=== PATIENT | female | born 1965 | race Hispanic/Latino ===

== ENCOUNTER → 2024-11-18 | Outpatient (CLI) | payer BC ==
--- NOTE | 2024-11-18 10:02 | HMCIMG ---
DEXA BONE DENSITY SURVEY HISTORY: Osteoporosis COMPARISON: None FINDINGS: Bone densitometry study was performed. Bone mineral density of the lumbar spine is 0.899 gram per centimeter square which corresponds to a T score of -1.3 and a Z score of 0.1. Bone mineral density of the left hip is 0.951 grams per centimeter square which corresponds to a T score of -0.1 and a Z score of 99. IMPRESSION: 1. Osteopenia of the lumbar spine and normal bone mineral density of left hip.
== END | disposition home or self-care (01) ==
LOC: RAH 08:26
PROVIDERS: ATTEND Internal Medicine
DX: M85.88 Other specified disorders of bone density and structure, other site (principal); M81.0 Age-related osteoporosis without current pathological fracture
CPT/HCPCS: 77080